=== PATIENT | female | born 1975 | race Caucasian/White ===

== ENCOUNTER 2019-09-29 21:36 | Emergency (ER) | payer SELFPAY ==
[2019-09-29] MEDS ORDERED: NORMAL SALINE 1000 ML 1,000 ML IV ONE (23:01)
[2019-09-29 23:54] LABS: APPEARANCE,URINE SLIGHTLY-CLOUDY; BILIRUBIN,URINE NEGATIVE (NEGATIVE); COLOR,URINE YELLOW; GLUCOSE, URINE >=500 mg/dL (NEGATIVE); KETONES,URINE NEGATIVE (NEGATIVE); LEUKOCYTE ESTERASE,URINE NEGATIVE (NEGATIVE); NITRITE,URINE NEGATIVE (NEGATIVE); PROTEIN,URINE NEGATIVE (NEGATIVE); URINE SPECIFIC GRAVITY 1.032; UROBILINOGEN,URINE NEGATIVE mg/dL (<2.0)
[2019-09-29 23:57] LABS: ABSOLUTE EOSINOPHILS # (AUTO) 0.4 10^3/uL (0.0-0.6); ABSOLUTE LYMPHOCYTES (AUTO) 2.1 10^3/uL (0.5-4.7); ABSOLUTE MONOCYTES (AUTO) 0.4 10^3/uL (0.1-1.4); ABSOLUTE NEUT (AUTO) 3.5 10^3/uL (1.7-8.2); BASOPHILS % (AUTO) 0.8 % (0-2); EOSINOPHILS % (AUTO) 5.8 % (0-6); HEMATOCRIT 40.8 % (36.0-47.0); HEMOGLOBIN 14.1 g/dL (12.0-15.5); LYMPHOCYTES % (AUTO) 32.5 % (13-45); MEAN CORPUSCULAR HEMOGLOBIN 30.8 pg (27.0-33.4); MEAN CORPUSCULAR HGB CONC 34.5 g/dL (32.0-36.0); MEAN CORPUSCULAR VOLUME 89 fl (80-97); MONOCYTES % (AUTO) 5.6 % (3-13); PLATELET COUNT 263 10^3/uL (150-450); RED BLOOD COUNT 4.58 10^6/uL (3.72-5.28); RED CELL DISTRIBUTION WIDTH 12.5 % (11.5-14.0); SEGMENTED NEUTROPHILS % (AUTO) 55.3 % (42-78); TOTAL CELLS COUNTED % (AUTO) 100 %; WHITE BLOOD COUNT 6.4 10^3/uL (4.0-10.5)
[2019-09-30 00:01] LABS: ADD MANUAL MICROSCOPIC YES
[2019-09-30 00:04] LABS: WBC,URINE 0-1 /HPF
[2019-09-30 00:12] LABS: ALBUMIN 4.1 g/dL (3.5-5.0); ALKALINE PHOSPHATASE 96 U/L (38-126); ANION GAP 11 (5-19); ASPARTATE AMINO TRANSFERASE 34 U/L (14-36); BILIRUBIN,DIRECT 0.3 mg/dL (0.0-0.4); BILIRUBIN,TOTAL 0.6 mg/dL (0.2-1.3); BLOOD UREA NITROGEN 11 mg/dL (7-20); CARBON DIOXIDE 24 mmol/L (22-30); CHLORIDE 98 mmol/L (98-107); GLUCOSE 381 mg/dL (75-110); POTASSIUM 4.2 mmol/L (3.6-5.0); TOTAL PROTEIN 7.5 g/dL (6.3-8.2)
--- NOTE | 2019-09-30 00:45 | ER Document Report ---
ED Blood Sugar Problem - General Chief Complaint: High Blood Sugar Stated Complaint: DIABETIC PROBLEM Time Seen by Provider: 09/30/19 00:25 Notes: 44-year-old woman presents to the emergency department with poorly controlled diabetes mellitus. She states that her monitor was reading "high ". She describes a polydipsia, polyphagia, and polyuria. Apparently for the past few weeks she has not been monitoring her blood sugar very closely. Blood sugar is poorly controlled. TRAVEL OUTSIDE OF THE [place] IN LAST 30 DAYS: No - Related Data Allergies/Adverse Reactions: No Known Allergies Allergy (Unverified 09/29/19 22:46) Home Medications: singulair, hydoxyzine, pioglitazone, celexa, glimepride Past Medical History - Social History Smoking Status: Never Smoker Family History: Reviewed & Not Pertinent Patient has suicidal ideation: No Patient has homicidal ideation: No Review of Systems - Review of Systems Notes: Constitutional: Generalized weakness HENT: Negative for sore throat. Eyes: Negative for visual changes. Cardiovascular: Negative for chest pain. Respiratory: Negative for shortness of breath. Gastrointestinal: Negative for abdominal pain, vomiting or diarrhea. Genitourinary: Polyuria. Musculoskeletal: Negative for back pain. Skin: Negative for rash. Neurological: Negative for headaches, weakness or numbness. 10 point ROS negative except as marked above and in HPI. Physical Exam - Vital signs Vitals: Temp Pulse Resp BP Pulse Ox 98.2 F 74 17 140/85 H 97 09/29/19 22:46 09/29/19 22:46 09/29/19 22:46 09/29/19 22:46 09/29/19 22:46 - Notes Notes: PHYSICAL EXAMINATION: Physical Exam: General: Well-nourished well-developed overweight 44-year-old woman in no acute distress HEENT: NC/AT, pupils equal round and reactive to light, MM moist,nares clear, oropharynx clear, airway patent Neck: supple, no adenopathy, no masses. Good range of motion Lungs: clear, no wheezing, no rales no rhonchi CVS: Regular rate and rhythm no murmur gallop or rub Abdomen: Soft, active, nontender, no masses, no hepatosplenomegaly Ext: No edema, clubbing or cyanosis. Neuro: Alert and responsive, moving all 4 extremities on command, cranial nerves intact, no focal findings Skin: Intact no open lesions, no rash PSYCH: Normal mood, normal affect. Course - Re-evaluation Re-evalutation: 09/30/19 02:20 Patient was given IV fluids, IV insulin and the blood sugar reduced to 230. I have asked her to follow-up with her primary care doctor regarding adjustment of medications and better compliance with diet and exercise. Patient states that she has not been taking good care of herself and monitoring her diabetes closely. She states the supplies are costly and the medications she cannot afford. - Vital Signs Vital signs: Temp Pulse Resp BP Pulse Ox 98.9 F 80 20 127/65 H 99 09/30/19 02:39 09/30/19 02:12 09/30/19 02:12 09/30/19 02:12 09/30/19 02:12 - Laboratory Result Diagrams: 09/29/19 23:45 09/29/19 23:45 Laboratory results interpreted by me: 09/29/19 09/29/19 09/29/19 21:54 22:08 22:54 Sodium Creatinine Glucose POC Glucose 405 H* 389 H ALT Urine Glucose (UA) >=500 H Urine Blood LARGE H 09/29/19 09/30/19 23:45 02:13 Sodium 133.4 L Creatinine 0.48 L Glucose 381 H POC Glucose 252 H ALT 47 H Urine Glucose (UA) Urine Blood Discharge - Discharge Clinical Impression: Poorly controlled diabetes mellitus Condition: Good Disposition: HOME, SELF-CARE Additional Instructions: YOU MUST FOLLOW-UP WITH A PRIMARY CARE DOCTOR DANITA (24-48 hours). Your diabetes poorly controlled and needs a better medical terminologist management of your blood sugar levels. The most important step is dietary changes. You need to avoid foods/drinks high in sugar and simple carbohydrates. Avoid sugared sodas, sweet tea, sugared coffee, white starch products (potatoes, pastas, rices, breads). These take your medications as prescribed and monitor your glucose closely. Please return to the ED immediately if you pass out, become confused, have persistent vomiting, or you have any new or worsening symptoms. HOME CARE INSTRUCTIONS & INFORMATION: Thank you for choosing us for your medical needs. We hope you're satisfied with the care you received. After you leave, you must properly care for your problem and, at the same time, observe its progress. Any condition can change. Some illnesses can change rapidly over hours or days. If your condition worsens, return to the Emergency Department or see your physician promptly. ABOUT YOUR X-RAYS AND EKG'S: If you had an EKG or X-rays taken, they have been read by the Emergency Physician. The X-rays and EKG's will also be read by a Radiologist or Painter And Body Mechanic Apprentice within 24 hours. If discrepancies are noted, you will be notified by telephone. Please be certain the ED has a correct telephone number & address where you can be reached. Also, realize that some fractures or abnormalities do not show up on initial X-rays. If your symptoms continue, see your physician. ABOUT YOUR LABORATORY TEST: If you had laboratory tests, the results have been reviewed by the Emergency Physician. Some test results (for example cultures) may not be available for several days. You will be contacted if any test result shows you need additional treatment. Please be certain the ED has a correct telephone number and address where you can be reached. ABOUT YOUR MEDICATIONS: You will receive instructions on how to take your me dicine on the prescription label you receive. Additional information may be provided by the Pharmacy. If you have questions afterwards, call the ED for clarification or further instructions. Some prescribed medications may cause drowsiness. Do not perform tasks such as driving a car or operating machinery without consulting your Pharmacist. If you feel you need a refill of pain medication, your condition will need re-evaluation. Please do not call for a refill of any medication. ABOUT YOUR SIGNATURE: Signature of this document acknowledges to followin. Understanding that you received emergency treatment and that you may be released before al medical problems are known or treated. Please be certain the ED has a correct phone number & address where you can be reached. 2. Acknowledgement that you will arrange for follow-up care as recommended. 3. Authorization for the Emergency Physician to provide information to your follow-up Physician in order to maximize your care. AT ANY TIME, IF YOUR SYMPTOMS CHANGE SIGNIFICANTLY OR WORSEN OR YOU DEVELOP NEW SYMPTOMS, RETURN TO THE EMERGENCY DEPARTMENT IMMEDIATELY FOR RE-EVALUATION. OUR GOAL IS TO PROVIDE EXCELLENT MEDICAL CARE! WE HOPE THAT WE HAVE MET YOUR EXPECTATIONS DURING YOUR EMERGENCY DEPARTMENT VISIT AND THAT YOU FEEL YOU HAVE RECEIVED EXCELLENT CARE!
[2019-09-30] MEDS ORDERED: NORMAL SALINE 1000 ML 1,000 ML IV ONE (00:46)
[2019-09-30] MEDS ORDERED: INSULIN REG, HUMAN 100 UNIT/ML 3 ML VIAL (PYX) IV ONE (00:47)
[2019-09-30 02:13] VITALS: BP 127/65
== END 2019-09-30 02:39 | disposition home or self-care (01) ==
LOC: ER 21:36
DX: E11.65 Type 2 diabetes mellitus with hyperglycemia (principal); R53.1 Weakness; Z79.84 Long term (current) use of oral hypoglycemic drugs; Z79.899 Other long term (current) drug therapy
CPT/HCPCS: 99283; 96360; 36415; 82962; 85025; 80053; 81001; J1815; J7030